=== PATIENT | female | born 1945 | race Caucasian/White ===

== ENCOUNTER 2019-10-25 17:08 | Emergency (ER) | payer MEDICARE, BC ==
--- NOTE | 2019-10-25 17:16 | EDM.PDOC ---
ED HPI GENERAL MEDICAL PROBLEM - General Chief Complaint: Neuro Symptoms/Deficits Stated Complaint: [facility] Time Seen by Provider: 10/25/19 17:13 Source of Information: Reports: EMS History Limitations: Reports: Physical Impairment ( paralyzed on the left side-- Springle type voice.) - History of Present Illness INITIAL COMMENTS - FREE TEXT/NARRATIVE: 74-year-old female presents to the ED per [facility]. Fairly she called Dr. scott approximately 15 minutes prior to coming to the ED. Denies that her left leg was not working and that her left arm began to feel numb tingly and was not working and then she developed difficulty speaking with left facial droop. He indicates to staff that she is not taking any blood thinners. She denies any headache. Her medics indicated that when they attended her she was slumped over to the left side with complete paresis of her left arm hand and left face. Occult time speaking as well. Old notes reveal we have not seen her since 2012. No past history of stroke. Onset: Today Onset Date: 10/25/19 Onset Time: 16:55 Duration: Minutes: Location: Reports: Face ( complete paresis left ming-facial weakness ), Upper Extremity, Left (Plate paresis), Lower Extremity, Left, Other (If occult a speaking i.e. whispering type voice) Quality: Reports: Other (Complete left-sided hemiparesis) Severity: Severe Improves with: Reports: None Worsens with: Reports: None Context: Reports: Other (Spontaneous occurrence estimated to be about 1655 hrs. today. Seen within 15 minutes in the ED of the event occurrence.). Denies: Activity, Exercise, Lifting, Sick Contact, Trauma Associated Symptoms: Denies: Confusion, Chest Pain, Cough, cough w sputum, Diaphoresis, Fever/Chills, Headaches, Loss of Appetite, Malaise, Nausea/Vomiting , Rash, Seizure, Shortness of Breath, Syncope Treatments BLIND HANGER: Reports: Other (see below) (None as far as we can ascertain.) - Related Data Allergies Allergy/AdvReac Type Severity Reaction Status Date / Time No Known Allergies Allergy Verified 10/25/19 17:33 Home Meds: Home Meds Cevimeline HCl 30 mg PO ASDIRECTED 10/25/19 [History] Hydroxychloroquine [Plaquenil] 400 mg PO DAILY 10/25/19 [History] Metoprolol Succinate 25 mg PO DAILY 10/25/19 [History] Past Medical History HEENT History: Reports: Other (See Below) (patient has sogren`s syndrome.) Cardiovascular History: Reports: Hypertension Social & Family History - Living Situation & Occupation Living situation: Reports: Occupation: Employed (Self-employed as a CPA) ED ROS GENERAL - Review of Systems Review Of Systems: See Below Constitutional: Reports: Malaise, Fatigue. Denies: Fever, Chills HEENT: Reports: Glasses, Other (As Sjogren syndrome and very dry eyes) Respiratory: Reports: No Symptoms Cardiovascular: Reports: Blood Pressure Problem Endocrine: Reports: Fatigue (On hydrochlorothiazide and metoprolol 25 mg once daily) GI/Abdominal: Reports: Constipation : Reports: Frequency, Incontinence (Occasional urge and stress components) Musculoskeletal: Reports: Joint Pain (Back shoulders and neck at times) Skin: Reports: No Symptoms Neurological: Reports: No Symptoms (Until today) Psychiatric: Reports: No Symptoms ED EXAM, NEURO - Physical Exam Exam: See Below Exam Limited By: Other (Joanie dysarthric) General Appearance: Alert, WD/WN, Moderate Distress, Other (He is looking only to the right side and ignoring the left side of her body. Initial temperature is recorded 36.1 heart rate was 80 and sinus on the monitor respiratory of 16 with O2 sats of 96% on room air initial BP 150/90 but quickly came down to 138/ 90.) Eye Exam: Bilateral Eye: Other (Patient has a gaze palsy looking primarily to the right and nothing past the midline.) Throat/Mouth: Normal Inspection (Uvula is deviated to the right side.), Normal Lips, Normal Teeth, Normal Oropharynx, Other Head Exam: Atraumatic, Normocephalic Neck: Normal Inspection, Supple, Non-Tender, Full Range of Motion, Other (She is very reluctant to even allow us to move her neck to the left side.). No: Lymphadenopathy (L), Lymphadenopathy (R) Respiratory/Chest: No Respiratory Distress, Lungs Clear, Normal Breath Sounds Cardiovascular: Normal Peripheral Pulses, Regular Rate, Rhythm, No Edema, No Gallop, No Murmur, No Rub GI/Abdominal: Normal Bowel Sounds, Soft, Non-Tender, No Organomegaly, No Abnormal Bruit, No Mass, Pelvis Stable Neurological: Alert, Oriented x 3, No Response to Pain (On the left side. Hemiparesis left arm and left leg and left face.), Babinski (Left side positive) . No: Normal Mood/Affect, Normal Dorsiflexion, CN II-XII Intact, Normal Plantar Flexion, Normal Gait, Normal Reflexes, No Motor/Sensory Deficits DTR: 0: Bicep (L), Patella (L) (She holds her legs stiff and will not Copper hand that she does not have to hold her legs tight.), Achilles (L), 2+: Bicep (R ), Patella (R), Achilles (R) Back Exam: Normal Inspection Extremities: Normal Inspection, Normal Range of Motion, Non-Tender, No Pedal Edema Psychiatric: Flat Affect Skin Exam: Warm, Dry, Intact, Normal Color, No Rash EKG INTERPRETATION EKG Date: 10/25/19 Time: 17:25 Rhythm: NSR Rate (Beats/Min): 78 [place]: Normal P-Wave: Present QRS: RBBB (Atypical right bundle branch block pattern) ST-T: Other (He is lying wandering in leads 2 and 3. T wave flattening in lead aVL nonspecific finding) QT: Prolonged (Moderately prolonged) EKG Interpretation Comments: Abnormal ECG Course - Vital Signs Last Recorded V/S: Last Vital Signs Temp 36.1 C 10/25/19 17:25 Pulse 80 10/25/19 17:25 Resp 16 10/25/19 17:25 BP 150/90 H 10/25/19 17:25 Pulse Ox 96 10/25/19 17:25 - Orders/Labs/Meds Orders: Active Orders 24 hr Category Date Time Status Blood Glucose Check, Bedside [RC] ONETIME Care 10/25/19 17:22 Active Insert Conklin Catheter [Insert Urinary Catheter] [OM.PC] Care 10/25/19 17:30 Ordered Q24H Urinary Catheter Assessment [RC] ASDIRECTED Care 10/25/19 17:23 Active Chest 1V Frontal [CR] Stat Exams 10/25/19 17:22 Taken URINALYSIS W/MICROSCOPIC [UA W/MICROSCOPIC] [URIN] Stat Lab 10/25/19 17:23 Ordered Dextrose 5%-0.9% NaCl [Dextrose 5%-Normal Saline] 1,000 Med 10/25/19 17:30 Active ml IV ASDIRECTED Medication Orders Dextrose/Sodium Chloride (Dextrose 5%-Normal Saline) 1,000 mls @ 75 mls/hr IV ASDIRECTED MALIKA Labs: Laboratory Tests 10/25/19 10/25/19 10/25/19 Range/Units 17:25 17:25 17:25 WBC 6.50 (3.98-10.04) K/mm3 RBC 4.71 (3.98-5.22) M/mm3 Hgb 13.2 (11.2-15.7) gm/dl Hct 41.5 (34.1-44.9) % MCV 88.1 (79.4-94.8) fl MCH 28.0 (25.6-32.2) pg MCHC 31.8 L (32.2-35.5) g/dl RDW Std Deviation 42.1 (36.4-46.3) fL Plt Count 249 (182-369) K/mm3 MPV 9.5 (9.4-12.3) fl Neut % (Auto) 63.2 (34.0-71.1) % Lymph % (Auto) 26.2 (19.3-51.7) % [place] % (Auto) 6.9 (4.7-12.5) % Eos % (Auto) 2.9 (0.7-5.8) Baso % (Auto) 0.6 (0.1-1.2) % Neut # (Auto) 4.11 (1.56-6.13) K/mm3 Lymph # (Auto) 1.70 (1.18-3.74) K/mm3 [place] # (Auto) 0.45 H (0.24-0.36) K/mm3 Eos # (Auto) 0.19 (0.04-0.36) K/mm3 Baso # (Auto) 0.04 (0.01-0.08) K/mm3 ESR 34 H (0-20) mm/hr PT (9.7-12.0) SECONDS INR APTT (22-31) SECONDS Sodium 140 (136-145) mEq/L Potassium 4.2 (3.5-5.1) mEq/L Chloride 104 (98-107) mEq/L Carbon Dioxide 27 (21-32) mEq/L Anion Gap 13.2 (5-15) BUN 36 H (7-18) mg/dL Creatinine 1.0 (0.55-1.02) mg/dL Est Cr Clr Drug Dosing 40.21 mL/min Estimated GFR (MDRD) 54 (>60) mL/min BUN/Creatinine Ratio 36.0 H (14-18) Glucose 96 (83-115) mg/dL Calcium 9.4 (8.5-10.1) mg/dL Magnesium 2.3 (1.8-2.4) mg/dl Total Bilirubin 0.5 (0.2-1.0) mg/dL AST 20 (15-37) U/L ALT 25 (14-59) U/L Alkaline Phosphatase 83 (46-116) U/L Troponin I < 0.017 (0.00-0.056) ng/mL C-Reactive Protein < 0.2 (<1.0) mg/dL NT-Pro-B Natriuret Pep (0-450) pg/mL Total Protein 7.8 (6.4-8.2) g/dl Albumin 3.9 (3.4-5.0) g/dl Globulin 3.9 gm/dL Albumin/Globulin Ratio 1.0 (1-2) 10/25/19 10/25/19 Range/Units 17:25 17:25 WBC (3.98-10.04) K/mm3 RBC (3.98-5.22) M/mm3 Hgb (11.2-15.7) gm/dl Hct (34.1-44.9) % MCV (79.4-94.8) fl MCH (25.6-32.2) pg MCHC (32.2-35.5) g/dl RDW Std Deviation (36.4-46.3) fL Plt Count (182-369) K/mm3 MPV (9.4-12.3) fl Neut % (Auto) (34.0-71.1) % Lymph % (Auto) (19.3-51.7) % [place] % (Auto) (4.7-12.5) % Eos % (Auto) (0.7-5.8) Baso % (Auto) (0.1-1.2) % Neut # (Auto) (1.56-6.13) K/mm3 Lymph # (Auto) (1.18-3.74) K/mm3 [place] # (Auto) (0.24-0.36) K/mm3 Eos # (Auto) (0.04-0.36) K/mm3 Baso # (Auto) (0.01-0.08) K/mm3 ESR (0-20) mm/hr PT 10.3 (9.7-12.0) SECONDS INR 0.94 APTT 26 (22-31) SECONDS Sodium (136-145) mEq/L Potassium (3.5-5.1) mEq/L Chloride (98-107) mEq/L Carbon Dioxide (21-32) mEq/L Anion Gap (5-15) BUN (7-18) mg/dL Creatinine (0.55-1.02) mg/dL Est Cr Clr Drug Dosing mL/min Estimated GFR (MDRD) (>60) mL/min BUN/Creatinine Ratio (14-18) Glucose (83-115) mg/dL Calcium (8.5-10.1) mg/dL Magnesium (1.8-2.4) mg/dl Total Bilirubin (0.2-1.0) mg/dL AST (15-37) U/L ALT (14-59) U/L Alkaline Phosphatase (46-116) U/L Troponin I (0.00-0.056) ng/mL C-Reactive Protein (<1.0) mg/dL NT-Pro-B Natriuret Pep 491 H (0-450) pg/mL Total Protein (6.4-8.2) g/dl Albumin (3.4-5.0) g/dl Globulin gm/dL Albumin/Globulin Ratio (1-2) Meds: Medications Generic Name Dose Route Start Last Admin Trade Name Freq PRN Reason Stop Dose Admin Dextrose/Sodium Chloride 1,000 mls @ 75 mls/hr 10/25/19 17:30 Dextrose 5%-Normal Saline IV ASDIRECTED MALIKA Discontinued Medications Generic Name Dose Route Start Last Admin Trade Name Freq PRN Reason Stop Dose Admin Alteplase, Recombinant Confirm 10/25/19 17:31 Activase Administered 10/25/19 17:32 Dose 100 mg .ROUTE .STK-MED ONE Alteplase, Recombinant 55 mg 10/25/19 17:31 Activase IV 10/25/19 17:32 ASDIRECTED ONE - Radiology Interpretation Free Text/Narrative:: 74-year-old female presents to the ED with acute onset of left-sided hemiparesis at approximately 1655 hrs. mom standard time today. She will with coworkers and was able to call out to them to indicate that she was struggling with left leg weakness and had to hold onto a counter. He was then appreciated that she had left leg weakness and she was aided to a chair. Then became mildly dysarthric. When the paramedics arrived they found her listing badly to the left side with complete left-sided hemiparesis. Still able to answer questions. Her head was deviated to the right ignoring the left side of her body. Similar findings upon arrival in the ED. She indicates that her weight is approximately 135 pounds. We used 61 kg as a baseline weight. Patient to be taken immediately to CT suite per stroke protocol - Re-Assessments/Exams Free Text/Narrative Re-Assessment/Exam: 10/25/19 17:15 CT head completed. It is within normal limits showing some senescent changes with mild vascular demyelination changes in the basal ganglia. There is no mass effect no intracranial bleeding. Discussed the options with the patient and she is a candidate for thrombolytic therapy and she has agreed verbally. Using 61 mg as her base weight she will receive 6 mg of TPA bolus and then 55 mg over the ensuing hour labs have been collected. ECG shows sinus rhythm with a atypical right bundle branch block. Pressure was 138/ 84 initially and traveled mildly upwards to 140/90. has a history of primary hypertension. Chest x-ray was done as well in the ED portably. 10/25/19 18:17 at this time patient is showing no movement in the left side of her body. She cannot squeeze my fingers move her arm or leg. TPA was started at 1747 hrs. I discussed the case with Dr. Kirsten Hogan --neurologist in [place] and with Dr.Steve Alexander --in the emergency department was accepted care. Helicopter cannot fly due to weather conditions. Patient be transported by ground ambulance as soon as possible. [facility] are here at this time. Chest x-ray is within normal limits other than perhaps very mild pulmonary fibrosis in the bases. Cardiac silhouette is upper limits of normal. 10/25/19 18:28 Hematology shows a normal white blood cell count at 6.50. Auto differential shows 63% neutrophils. Hemoglobin is 13.2 with hematocrit of 41.5. Platelet count is 249,000. PT is 10.3 with an INR of 0.94. PTT is 26. Sodium is 140 with a potassium of 4.2. Chloride 104 bicarbonate 27. Anion gap is 13.2. B1 is 36 with a creatinine of 1.0. Estimated GFR is 54. BUN/creatinine ratio is elevated at 36.0. Glucose is 96 with a calcium of 9.4. Magnesium is 2.3 with a total bilirubin of 0.5. Liver function is otherwise normal. Troponin I is less than 0.017. C-reactive protein less than 0.2. BNP is mildly elevated at 491. Total protein is 7.8 albumin fraction of 3.9. She did be transported to the emergency department at [facility] in [facility] - Departure Time of Disposition: 18:20 Disposition: DC/Tfer to Acute Hospital 02 Condition: Serious Clinical Impression: Cerebrovascular accident (CVA) determined by clinical assessment, Left hemiparesis, Primary hypertension - Discharge Information *PRESCRIPTION DRUG MONITORING PROGRAM REVIEWED*: Not Applicable *COPY OF PRESCRIPTION DRUG MONITORING REPORT IN PATIENT MANOHAR: Not Applicable Instructions: Fibrinolytic Therapy, Ischemic Stroke, [id number] Forms: ED Department Discharge Additional Instructions: Patient transferred to stroke unit at [facility] in [place]. Dr. Kirsten Hogan is a local neurologist who has accepted care. Patient is to present to the emergency department to see Dr. Francesco Alexander first. Sepsis Event Note - Focused Exam Vital Signs: Vital Signs Temp Pulse Resp BP Pulse Ox 10/25/19 17:25 36.1 C 80 16 150/90 H 96 Date Exam was Performed: 10/25/19 Time Exam was Performed: 18:28 - My Orders Last 24 Hours: My Active Orders 10/25/19 17:22 Blood Glucose Check, Bedside [RC] ONETIME Chest 1V Frontal [CR] Stat 10/25/19 17:23 Urinary Catheter Assessment [RC] ASDIRECTED URINALYSIS W/MICROSCOPIC [UA W/MICROSCOPIC] [URIN] Stat 10/25/19 17:30 Insert Conklin Catheter [Insert Urinary Catheter] [OM.PC] Q24H Dextrose 5%-0.9% NaCl [Dextrose 5%-Normal Saline] 1,000 ml IV ASDIRECTED - Assessment/Plan Last 24 Hours: My Active Orders 10/25/19 17:22 Blood Glucose Check, Bedside [RC] ONETIME Chest 1V Frontal [CR] Stat 10/25/19 17:23 Urinary Catheter Assessment [RC] ASDIRECTED URINALYSIS W/MICROSCOPIC [UA W/MICROSCOPIC] [URIN] Stat 10/25/19 17:30 Insert Conklin Catheter [Insert Urinary Catheter] [OM.PC] Q24H Dextrose 5%-0.9% NaCl [Dextrose 5%-Normal Saline] 1,000 ml IV ASDIRECTED
[2019-10-25] MEDS ORDERED: Dextrose 5%-0.9% NaCl 1,000 ML IV SCH (17:30)
--- NOTE | 2019-10-25 17:49 | CT ---
Head CT Technique: Multiple axial sections through the brain were obtained. Intravenous contrast was not utilized. Comparison: No prior intracranial imaging. Findings: Motion artifact which persisted on multiple repeat studies. Current exam is best possible. Findings: Mild motion artifact is seen. Ventricles along with basal cisterns and sulci over the convexities are mildly prominent. No evidence of the intracranial hemorrhage. No midline shift or mass effect is seen. No abnormal parenchymal densities are seen. Bone window settings were reviewed which shows no acute calvarial abnormality. Visualized mastoid sinuses and paranasal sinuses show nothing acute. Impression: 1. Mild senescent change. Motion artifact. 2. Nothing acute is definitely appreciated on noncontrast head CT exam. Diagnostic code #2 This report was dictated in [place] Standard Time
--- NOTE | 2019-10-26 07:15 | CR ---
Chest: Portable view of the chest was obtained. Comparison: No previous chest x-ray is available. Heart size at the upper limits of normal. Upper mediastinum is normal. Tortuous thoracic aorta is seen. Central lung markings are slightly increased. No alveolar type densities are seen. Bony structures are osteopenic. Impression: 1. Central lung markings are slightly increased. Some of this is accentuated from portable technique. Difficult to exclude mild pulmonary vascular congestion which may be chronic. 2. Nothing acute is otherwise seen. Diagnostic code #2 This report was dictated in [place] Standard Time
== END 2019-10-25 18:22 ==
LOC: SUPCPDRO 17:08 → JD.ED 17:08
DX: I63.9 Cerebral infarction, unspecified (principal); G81.94 Hemiplegia, unspecified affecting left nondominant side; I10 Essential (primary) hypertension; Z79.899 Other long term (current) drug therapy
CPT/HCPCS: 36415; 37195; 51702; 70450; 71045; 80053; 83735; 83880; 84484; 85025; 85610; 85652; 85730; 86140; 99285; J2997; J7042; 93010